=== PATIENT | male | born 1995 | race Hispanic/Latino ===

== ENCOUNTER 2019-08-18 03:42 | Emergency (ER) | payer OTHER ==
[~2019-08-18] VITALS: Ht 172.7 cm; Wt 113.4 kg
--- NOTE | 2019-08-18 04:30 | Diagnostic Imaging Report ---
EXAMINATION: CT of the abdomen and pelvis without contrast. TECHNIQUE: Spiral CT images of the abdomen and pelvis were performed from the lung bases to the lesser trochanters. No intravenous contrast was given per renal stone protocol. Coronal and sagittal reformatted images were obtained. COMPARISON: None. CLINICAL HISTORY:Right lower quadrant abdominal pain for one hour DISCUSSION: ABSENCE OF INTRAVENOUS CONTRAST DECREASES SENSITIVITY FOR DETECTION OF FOCAL LESIONS AND VASCULAR PATHOLOGY. ABDOMEN/PELVIS: LOWER THORAX: Unremarkable. HEPATOBILIARY: Diffuse decreased attenuation of the hepatic parenchyma consistent with steatosis. No focal hepatic lesions. No intra or extrahepatic biliary ductal dilation. GALLBLADDER: No radio-opaque stones or sludge. No wall thickening. SPLEEN: No splenomegaly. PANCREAS: No focal masses or ductal dilatation. ADRENALS: No adrenal nodules. KIDNEYS/URETERS: No renal or ureteral calculi, hydronephrosis or obstruction. No contour abnormalities or perinephric stranding. PELVIC ORGANS/BLADDER: Bladder is unremarkable, without focal lesions, wall thickening or stones. Prostate is unremarkable. PERITONEUM/RETROPERITONEUM: No free air or fluid. LYMPH NODES: No intra-abdominal,retroperitoneal, pelvic or inguinal lymphadenopathy. VESSELS: Unremarkable for noncontrast exam. GI TRACT: No bowel dilation or evidence of obstruction. No pericolonic inflammatory changes. Appendix is well identified and normal in caliber. Stomach is unremarkable. BONES AND SOFT TISSUES: No aggressive lytic lesions. Soft tissues are unremarkable. IMPRESSION: 1. No renal, ureteral or bladder calculi, hydronephrosis or obstruction. 2. No acute abdominopelvic abnormalities in this noncontrast exam. No acute abnormal findings in the right lower quadrant to explain the patient's pain. 3. Diffuse hepatic steatosis Signed by: Dr. Favian Marks M.D. on 08/18/2019 4:27 AM
== END 2019-08-18 06:00 | disposition home or self-care (01) ==
LOC: FSED 03:42
DX: R10.31 Right lower quadrant pain (principal); R10.33 Periumbilical pain
CPT/HCPCS: 74176; 80053; 85025; 99284